=== PATIENT | female | born 1945 | race Caucasian/White ===

== ENCOUNTER 2016-12-07 06:39 | Day surgery (SDC) ==
[2015-08-15 10:42] VITALS: BMI 47.0
[2016-12-07] MEDS ORDERED: LIDOCAINE 1% 20 ML MDV ONE (07:05)
[2016-12-07] MEDS ORDERED: LIDOCAINE 1% 20 ML MDV ID ONE (07:05)
[2016-12-07] MEDS ORDERED: DIPRIVAN 20 ML VIAL IVP ONE (08:30)
[2016-12-07] MEDS ORDERED: VERSED ONE (08:30)
[2016-12-07 09:28] VITALS: BP 126/85; TEMP 97
--- NOTE | 2016-12-07 13:59 | OP ---
PROCEDURE: COLONOSCOPY TO THE CECUM WITH SNARE POLYPECTOMY. ENDOSCOPIST: Praveen NORTON M.D. INDICATION: HISTORY OF ADENOMATOUS POLYPS. LAST COLONOSCOPY THREE YEARS PRIOR TO THIS EVALUATION. INSTRUMENT: IP [id number]-190. MEDICATION: PER ANESTHESIA. PROCEDURE: The patient was positioned for colonoscopy. The digital rectal exam was negative. The colonoscope was inserted through the anus and advanced to the cecum. The cecum was identified using the ileocecal valve and the appendiceal orifice as landmarks. The scope was slowly withdrawn through an adequately prepped colon. Two polyps were removed in the cecal pit using snare cautery. She has a rather large ileocecal valve. The terminal ileum was intubated and was normal. Nothing of note behind the ileocecal valve. At the hepatic flexure, a 1 cm polyp was removed using snare cautery. Three (3) polyps were removed in the 70 cm range using snare cautery. Diverticula were noted throughout the left colon. The retroflex exam was otherwise normal. Withdrawal time 13 minutes and 59 seconds. PLAN: 1. Suggest repeat colonoscopy in 3 years. CC: DR. RUBIN BANEGAS
== END 2016-12-07 09:45 | disposition home or self-care (01) ==
LOC: SURG 06:39
PROVIDERS: ATTEND Internal Medicine Gastroenterology
DX: Z86.010 Personal history of colon polyps (principal); D12.0 Benign neoplasm of cecum; D12.3 Benign neoplasm of transverse colon; D12.4 Benign neoplasm of descending colon; K57.30 Diverticulosis of large intestine without perforation or abscess without bleeding

== ENCOUNTER 2017-11-16 14:24 | Outpatient (CLI) | payer OTHER ==
[2015-08-15 10:42] VITALS: BMI 47.0
== END 2017-11-16 14:25 | disposition short-term general hospital (02) ==
LOC: AMBL 14:24
PROVIDERS: ATTEND Emergency Medicine
DX: R07.9 Chest pain, unspecified (principal); R06.02 Shortness of breath; R20.0 Anesthesia of skin; R00.0 Tachycardia, unspecified; R06.4 Hyperventilation